=== PATIENT | female | born 1975 | race African-American/Black ===

== ENCOUNTER 2023-08-24 13:58 | Emergency (ER) | payer OTHER ==
[~2023-08-24] VITALS: Ht 142.2 cm; Wt 72.6 kg
[2023-08-24 14:09] VITALS: BP 111/71; PULSE 87; RESP 20; TEMP 96.9; O2SAT 100
[2023-08-24] MEDS ORDERED: predniSONE 20 MG TAB PO ONE (14:25)
[2023-08-24] MEDS ORDERED: LORATADINE 10 MG TAB PO ONE (14:25)
[2023-08-24] MEDS ORDERED: PRED20TA5 PO (14:53)
[2023-08-24] MEDS ORDERED: CETI-403 PO (14:53)
[2023-08-24 15:03] VITALS: BP 111/71; PULSE 87; RESP 20; TEMP 96.9; O2SAT 100
== END 2023-08-24 15:00 | disposition home or self-care (01) ==
LOC: MED 13:58
DX: L50.9 Urticaria, unspecified (principal); I10 Essential (primary) hypertension; Z88.0 Allergy status to penicillin; Z79.899 Other long term (current) drug therapy
CPT/HCPCS: 99283; J7512